=== PATIENT | female | born 1955 | race African-American/Black ===

== ENCOUNTER 2018-12-05 08:19 | Emergency (ER) | payer OTHER ==
[2018-12-05 08:30] VITALS: BP 150/87; PULSE 85; TEMP 97.8; BMI 30.2
--- NOTE | 2018-12-05 08:42 | PDOC ---
History of Present Illness - General Chief Complaint: Back Pain Stated Complaint: LOWER BACK / LEG PAIN Time Seen by Provider: 12/05/18 08:39 History Source: Patient Exam Limitations: No Limitations - History of Present Illness Initial Comments: 12/05/18 08:40 The patient is a 63-year-old female who presents to the ER for bilateral lower back pain radiating down to the legs for the last 3 days. She states the pain is worse on the R and radiates to her L leg. Denies numbness and tingling and weakness to the extremities, fever, trauma, bladder or bowel incontinence and saddle anesthesia. Past History - Travel Traveled outside of the country in the last 30 days: No Close contact w/someone who was outside of country & ill: No - Past Medical History Allergies/Adverse Reactions: Allergies Allergy/AdvReac Type Severity Reaction Status Date / Time Penicillins Allergy Rash Verified 12/05/18 09:13 Home Medications: Ambulatory Orders Diazepam [Valium] 2 mg PO HS #7 tablet MDD 1 12/05/18 Methylprednisolone [Medrol Dose Abimael] 4 mg PO ASDIR #21 tablet 12/05/18 traMADol HCL [Ultram -] 50 mg PO Q8H #10 tablet MDD 3 12/05/18 COPD: No CHF: No HTN: Yes - Suicide/Smoking/Psychosocial Hx Smoking History: Never smoked Have you smoked in the past 12 months: No Hx Alcohol Use: No Drug/Substance Use Hx: No Substance Use Type: None Review of Systems - Review of Systems Able to Perform ROS?: Yes Comments:: 12/05/18 08:40 CONSTITUTIONAL: Absent: fever, chills, diaphoresis, generalized weakness, malaise, loss of appetite GASTROINTESTINAL: Absent: abdominal pain, abdominal distension, nausea, vomiting, diarrhea, constipation, melena, hematochezia GENITOURINARY: Absent: dysuria, frequency, urgency, hesitancy, hematuria, flank pain, genital pain MUSCULOSKELETAL: Present: low back pain radiating to the legs Absent: arthralgia, joint swelling SKIN: Absent: rash, itching, pallor NEUROLOGIC: Absent: headache, focal weakness or paresthesias, dizziness, unsteady gait, seizure, mental status changes, bladder or bowel incontinence PSYCHIATRIC: Absent: anxiety, depression, suicidal or homicidal ideation, hallucinations. Is the patient limited Telugu proficient: No *Physical Exam - Vital Signs Last Vital Signs Temp Pulse Resp BP Pulse Ox 97.8 F 85 17 150/87 99 12/05/18 08:26 12/05/18 08:26 12/05/18 08:26 12/05/18 08:26 12/05/18 08:26 - Physical Exam Comments: 12/05/18 08:41 GENERAL: Well developed, well nourished. Awake and alert. No acute distress. HEENT: Normocephalic, atraumatic. PERRLA, EOMI. No conjunctival pallor. Sclera are non- icteric. Moist mucous membranes. Oropharynx is clear. NECK: Supple. Full ROM. No JVD. Carotid pulses 2+ and symmetric, without bruits. No thyromegaly. No lymphadenopathy. CARDIOVASCULAR: Regular rate and rhythm. No murmurs, rubs, or gallops. Distal pulses are 2+ and symmetric. PULMONARY: No evidence of respiratory distress. Lungs clear to auscultation bilaterally. No wheezing, rales or rhonchi. ABDOMINAL: Soft. Non-tender. Non-distended. No rebound or guarding. No organomegaly. Normoactive bowel sounds. MUSCULOSKELETAL TTP of the b/l paraspinous muscles, L3-S1, with palpable knots consistent with muscle spasm. (-) midline tenderness. (+) straight leg raise b/l worse on the L side. Normal range of motion at all joints. No bony deformities or tenderness. No CVA tenderness. EXTREMITIES: No cyanosis. No clubbing. No edema. No calf tenderness. SKIN: Warm and dry. Normal capillary refill. No rashes. No jaundice. NEUROLOGICAL: Alert, awake, appropriate. Cranial nerves 2-12 intact. No deficits to light touch and temperature in face, upper extremities and lower extremities. No motor deficits in the in face, upper extremities and lower extremities. Normoreflexic in the upper and lower extremities. Normal speech. Toes are down- going bilaterally. Gait with limp favoring the R side PSYCHIATRIC: Cooperative. Good eye contact. Appropriate mood and affect. Moderate Sedation - Procedure Monitoring Vital Signs: Procedure Monitoring Vital Signs Temperature 97.8 F 12/05/18 08:26 Pulse Rate 85 12/05/18 08:26 Respiratory Rate 17 12/05/18 08:26 Blood Pressure 150/87 12/05/18 08:26 O2 Sat by Pulse Oximetry (%) 99 12/05/18 08:26 Medical Decision Making - Medical Decision Making 12/05/18 08:41 -Pt with TTP of the b/l paraspinous muscles, L3-S1, with palpable knots consistent with muscle spasm. (-) midline tenderness. (+) straight leg raise b/ l worse on the L side. Pain radiates into the L groin -No trauma, or fever. No saddle anesthesia or bladder/bowel incontinence. No CVA tenderness. -Pt is neurologically intact on exam with no focal findings. -Toradol given with relief of symptoms -CT scan shows spinal stenosis from L5-S1 b/l. No compression of the cord -DC home. Ortho follow up given for if symptoms do not resolve. -I discussed the physical exam findings, ancillary test results and final diagnoses with the patient. I answered all of the patient's questions. The patient was satisfied with the care received and felt comfortable with the discharge plan and treatment plan. The Patient agrees to follow up with the primary care physician/specialist within 24-72 hours. Return precautions were given. *DC/Admit/Observation/Transfer Diagnosis at time of Disposition: Lumbar radiculopathy - Discharge Dispostion Disposition: HOME Condition at time of disposition: Stable Decision to Admit order: No - Prescriptions Prescriptions: Diazepam [Valium] 2 mg PO HS #7 tablet MDD 1 Methylprednisolone [Medrol Dose Abimael] 4 mg PO ASDIR #21 tablet traMADol HCL [Ultram -] 50 mg PO Q8H #10 tablet MDD 3 - Referrals Referrals: Nii Donahue MD [Primary Care Provider] - Tremayne Calloway MD [Staff Physician] - - Patient Instructions Printed Discharge Instructions: DI for Back Pain With Sciatica Additional Instructions: You have low back pain and sciatica. Please take the medrol dose pack as prescribed. You were also prescribed valium. Please take the medication before you go to bed. Do not drive after taking this medication as it may make you sleepy. You may take a tramadol every 8 hours for break through pain You may use warm compresses on your back to help with her symptoms. Please follow-up with your primary care doctor. If your symptoms do not resolve in 3-5 days, follow-up with spinal orthopedics. A referral has been provided for you. Return to the emergency department if you have worsening back pain, bladder or bowel incontinence, numbness and tingling in her legs, changes in the way you walk, or any new or worsening symptoms. - Post Discharge Activity Forms/Work/School Notes: Back to Work
[2018-12-05] MEDS ORDERED: KETOROLAC TROMETHAMINE 60 MG/2 ML VIAL IM ONE (09:27)
[2018-12-05] MEDS ORDERED: LIDOCAINE 5% TOPICAL PATCH TP ONE (09:27)
[2018-12-05] MEDS ORDERED: KETOROLAC TROMETHAMINE 60 MG/2 ML VIAL ONE (09:42)
[2018-12-05] MEDS ORDERED: LIDOCAINE 5% TOPICAL PATCH ONE (09:42)
[2018-12-05] MEDS ORDERED: DEXAMETHASONE LIQUID 0.5 MG/5 ML 240 ML BULK BOTTLE PO ONE (10:48)
[2018-12-05] MEDS ORDERED: DEXAMETHASONE SOD PHOSPHATE 10 MG/1 ML VIAL ONE (10:53)
[2018-12-05] MEDS ORDERED: LIDOCAINE PATCH REMOVAL MC SCH (22:00)
== END 2018-12-05 11:52 | disposition home or self-care (01) ==
LOC: JERFT 08:19
PROC: 3E0233Z Introduction of Anti-inflammatory into Muscle, Percutaneous Approach (ICD-10-PCS; principal; 2018-12-05)
DX: M54.16 Radiculopathy, lumbar region (principal)
CPT/HCPCS: 72131-TC; 96372; 99281-25

== ENCOUNTER 2024-02-07 08:54 | Emergency (ER) | payer OTHER ==
[2024-02-07 09:07] VITALS: PULSE 91; RESP 18; TEMP 98; BMI 34.3
[2024-02-07] MEDS ORDERED: ENALAPRIL MALEATE 5 MG TABLET ONE (09:57)
[2024-02-07] MEDS: ENALAPRIL MALEATE 5 MG TABLET PO ONE (10:05)
[2024-02-07 11:02] VITALS: BP 160/97
== END 2024-02-07 11:41 | disposition home or self-care (01) ==
LOC: JER 08:54
DX: I10 Essential (primary) hypertension (principal)
CPT/HCPCS: 93005; 93010; 99283-25

== ENCOUNTER 2024-03-02 12:04 | Emergency (ER) | payer OTHER ==
[2024-03-02 12:09] VITALS: BP 170/99; PULSE 82; RESP 18; TEMP 98.3; BMI 34.3
[2024-03-02 14:09] LABS: HEMATOCRIT 41.5 % (32.4-45.2); HEMOGLOBIN 13.5 GM/dL (10.7-15.3); MCH 28.8 pg (25.7-33.7); MCHC 32.6 g/dl (32.0-36.0); MEAN CELL VOLUME 88.2 fl (80-96); MEAN PLT VOLUME 7.7 fl (7.5-11.1); PLATELET COUNT 189 10^3/uL (134-434); RBC 4.71 M/mm3 (3.60-5.2); RDW 13.4 % (11.6-15.6); WHITE BLOOD COUNT 4.2 K/mm3 (4.0-10.0)
[2024-03-02 14:30] LABS: POTASSIUM 3.8 mmol/L (3.5-5.1)
[2024-03-02 14:33] LABS: ALBUMIN 4.2 g/dl (3.4-5.0); BLOOD UREA NITROGEN 8.8 mg/dL (7-18); CALCIUM 9.7 mg/dL (8.5-10.1)
[2024-03-02 14:37] LABS: BILIRUBIN,TOTAL 0.6 mg/dL (0.2-1); TOT PROT 7.6 g/dl (6.4-8.2)
== END 2024-03-02 15:30 | disposition home or self-care (01) ==
LOC: JER 12:04
DX: I10 Essential (primary) hypertension (principal)
CPT/HCPCS: 36415; 80053; 84484; 85027; 93005; 93010; 99284-25